=== PATIENT | male | born 1980 | race Hispanic/Latino ===

== ENCOUNTER 2018-07-29 21:12 | Emergency (ER) | payer SELFPAY ==
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
[2018-07-29] MEDS ORDERED: HYDROcodone/Acetaminophen 10/325 mg Tablet ONE (21:45)
== END 2018-07-29 21:52 | disposition home or self-care (01) ==
LOC: ERS 21:12
DX: M25.512 Pain in left shoulder (principal)

== ENCOUNTER 2018-11-27 09:09 | Emergency (ER) | payer SELFPAY ==
--- NOTE | 2018-11-27 09:51 | RAD ---
EXAM: 3 views of the left shoulder HISTORY: Shoulder pain COMPARISON: None FINDINGS: There is no evidence of acute fracture or dislocation. There is remote healed mid left clav icle fracture. No degenerative changes are present. No soft tissue swelling is seen. The visualized thorax is unremarkable. IMPRESSION: No evidence of acute osseous abnormality.
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
== END 2018-11-27 12:20 | disposition home or self-care (01) ==
LOC: ERS 09:09
DX: S06.0X1A Concussion with loss of consciousness of 30 minutes or less, initial encounter (principal); S46.912A Strain of unspecified muscle, fascia and tendon at shoulder and upper arm level, left arm, initial encounter; Y04.0XXA Assault by unarmed brawl or fight, initial encounter
CPT/HCPCS: 70450